=== PATIENT | female | born 1955 | race Caucasian/White ===

== ENCOUNTER 2025-04-12 12:06 | Day surgery (SDC) | payer MEDICARE, OTHER ==
--- NOTE | 2025-04-10 11:36 | ELECTROCARDIOGRAPH REPORT ---
[facility] Test Date: 2025-04-10 Test Time: 11:32:58 Pat Name: ZHANG BARNARD Department[id number] Room: Gender: F Rand Butter: drake : 1955 Requested By: AMANDA GREENBERG Order Number: [id number] Reading MD: Dr. MI Aggarwal Measurements Intervals [place] Rate: 51 P: 41 [place]: 174 QRS: -34 QRSD: 107 T: -21 QT: 482 QTc: 444 Interpretive Statements Sinus bradycardia Inferior infarct, old Electronically Signed On 04-10-2025 17:23:[address] MI Aggarwal Please click the below link to view image of tracing.
[2025-04-10 11:51] LABS: MEAN PLATELET VOLUME 7.4 FL (7.4-10.4); PRE OP HEMATOCRIT 41.0 % (35.0-45.0); PRE OP HEMOGLOBIN 13.7 g/dL (12.0-16.0); PRE OP PLATELET COUNT 266 X10'3 (140-440); PRE OP WHITE BLOOD COUNT 6.4 10'3 (4.8-10.8); RED CELL DISTRIBUTION WIDTH 13.7 % (11.5-14.5)
[2025-04-10 12:01] LABS: CREATININE 1.01 MG/DL (0.40-0.90); PRE OP ALT 24 U/L (30-65); PRE OP ANION GAP 8 (8-16); PRE OP AST 17 U/L (10-37); PRE OP BILIRUB, TOTAL 0.3 MG/DL (0.0-1.0); PRE OP GLUCOSE 93 MG/DL (70-104); PRE OP SODIUM 146 MMOL/L (135-145); TOTAL CARBON DIOXIDE 31.7 MMOL/L (24-32); eGFR 55 ML/MIN
[2025-04-10 12:32] LABS: PRE OP POTASSIUM 3.0 MMOL/L (3.4-5.1)
[~2025-04-12] VITALS: Ht 175.3 cm; Wt 102.6 kg
[2025-04-12] VITALS (13 sets, daily range): BP systolic 124–175; BP diastolic 73–112; PULSE 45–73; RESP 10–18; TEMP 97; O2SAT 97–100
[2025-04-12] MEDS: ceFAZolin 2gm/dext,iso 50mL 50 ML IV ONE (05:30)
[~2025-04-12 12:06] MED LIST: ATOR40TA72 PO; DOCUMENT DATE & TIME OF BETA-BLOCKER PO ONE; ESTR0.3T3 PO; HYDR25TA4 PO; INDLA80C PO; POTA10CA95 PO
[2025-04-12] MEDS ORDERED: glycopyrrolate 0.2mg/ml inj IV ONE (12:07)
[2025-04-12] MEDS ORDERED: acetaminophen 1,000mg/100ml IV 100 ML IV ONE (12:48)
[2025-04-12] MEDS ORDERED: BUPIVAcaine/PF 2.5mg/ml (0.25%) 10ml vial ONE (12:48)
[2025-04-12] MEDS ORDERED: LIDOcaine 1% (10mg/ml)w/preservative inj. 20ml MDV ONE (12:48)
[2025-04-12 13:14] LABS: ISTAT ANION GAP 10.0 (8-12); ISTAT BUN 15.0 mg/dL (7-18); ISTAT CL 106.0 mmol/L (99-107); ISTAT CREATININE 1.2 mg/dL (0.6-1.1); ISTAT GLUCOSE 81.0 mg/dL (70-104); ISTAT HGB 13.3 g/dl (12.0-16.0); ISTAT Hct 39.0 %PCV (35-45); ISTAT IONIZED CALCIUM 1.21 mmol/L (1.03-1.32); ISTAT K 3.4 mmol/L (3.5-5.1); ISTAT NA 141.0 mmol/L (135-145); ISTAT TOTAL CO2 25.0 mmol/L (24-32); ISTAT eGFR 45.0 ML/MIN; POC BUN/CREATININE RATIO 12.5 (6.6-38.0)
[2025-04-12] MEDS: ringers solution, lacted 1,000 ML IV SCH (13:20)
[2025-04-12] MEDS: INDOCYANINE GREEN 25 MG/10 ML VIAL IV ONE (13:21)
[2025-04-12] MEDS ORDERED: morphine 4 MG/ML inj SYRINge IV PRN (13:40)
[2025-04-12] MEDS ORDERED: ringers solution, lacted 1,000 ML IV SCH (13:40)
[2025-04-12] MEDS ORDERED: fentaNYL/PF 50MCG/1 ML 2ML syringe IV PRN (13:40)
[2025-04-12] MEDS ORDERED: ondansetron/PF 4mg/2ml inj IV PRN (13:40)
[2025-04-12] MEDS ORDERED: HYDROmorphone/PF 0.2 MG/ML SYRINGE IV PRN ×2 (13:40)
[2025-04-12] MEDS ORDERED: midazolam 1 mg/ML 2ml injection ONE (14:21)
[2025-04-12] MEDS ORDERED: fentaNYL/PF 50MCG/1 ML 2ML syringe ONE (14:21)
[2025-04-12] MEDS ORDERED: propofol inj 20 ML IV ONE (14:27)
[2025-04-12] MEDS ORDERED: LIDOcaine 1%/PF 5ML 10 MG/ML VIAL ONE (14:27)
[2025-04-12] MEDS ORDERED: ondansetron/PF 4mg/2ml inj ONE (14:27)
[2025-04-12] MEDS ORDERED: dexamethasone sod phosphate 4mg/ml inj. ONE (14:27)
[2025-04-12] MEDS ORDERED: rocuronium 10mg/ml inj IV ONE (14:27)
[2025-04-12] MEDS ORDERED: oxyCODONE/APAP 5-325mg tablet PO PRN (15:20)
--- NOTE | 2025-04-12 15:22 | OPERATIVE REPORT ---
Operative Report Providers to CC CC: DALJIT GREENBERG MD ~ Date of Procedure: Apr 12, 2025 Pre-Operative Diagnosis: Symptomatic cholelithiasis Post-Operative Diagnosis SAME as PRE-Op Procedure Performed Robotic assisted, laparoscopic cholecystectomy Surgeon: Daljit Greenberg MD FACS [employer] None Anesthesiologist: Mani Orona Type of Anesthesia: General Findings: Clear visualization of the cystic duct and critical view of safety confirmed with fluorescent cholangiography/firefly Cholelithiasis Complications None Prosthetics\Implants used: None Estimated Blood Loss: Minimal Specimen Removed: Gallbladder Description of Procedure: Patient was brought to the operating room and identified by the nursing staff and the attending physician. Patient was placed supine and general anesthesia was induced. A supraumbilical, midline incision was made, long enough to accommodate a 12 mm Peñaloza port. Peñaloza technique was used to gain entry into the abdomen. Stay sutures were placed in the Peñaloza port anchored to the fascia. Abdomen was insufflated without incident. Laparoscope was inserted and the abdomen surveyed. Secondary, 8.5 mm robotic trochars were placed in the left upper quadrant and right lateral abdomen. Robotic arm was docked to the patient. Robotic instruments were guided intra- abdominally under laparoscopic visualization. Gallbladder was readily identified. Some filmy attachments between the anterior wall of the gallbladder and the 2nd portion of the duodenum were taken down Fundus of the gallbladder was grasped and retracted over the dome of the liver. Infundibulum was retracted towards the right lower quadrant. Firefly technology was used to obtain a fluorescent cholangiogram and visualize the pertinent anatomy. Cystic duct was clearly visualized. Peritoneum overlying the triangle was incised with hook electrocautery. This allowed for circumferential dissection of the cystic duct and artery. Critical view of safety was obtained. Duct and artery were then clipped with hemo-lock clips and both structures divided. Gallbladder was retracted laterally and dissected out of the gallbladder fossa. Gallbladder was set aside and fluorescent cholangiogram of the gallbladder fossa was used to confirm no evidence of bile leak. Gallbladder was placed in a laparoscopic retrieval bag. Secondary trochars were removed and the abdomen allowed to deflate. Peñaloza port was removed with the specimen in its retrieval bag. Fascia at the umbilical port site was closed with 0 Vicryl sutures. Skin was closed with 4-0 Monocryl sutures in a subcuticular fashion. About 40 cc of local anesthetic was used during the case. Sterile dressings were applied. Patient was awakened and taken to the postanesthesia care unit in stable condition. Counts repoted as correct: Yes DALJIT GREENBERG MD Apr 12, 2025 15:22
[2025-04-12] MEDS: fentaNYL/PF 50MCG/1 ML 2ML syringe IV PRN (15:32)
[2025-04-12] MEDS ORDERED: HYDROmorphone/PF 0.2 MG/ML SYRINGE IV ONE (15:50)
[2025-04-12] MEDS: HYDROmorphone inj. 0.5 MG/0.5 ML DISP.SYRIN IV ONE (15:59)
[2025-04-12] MEDS: labetalol 20mg/4ml (5mg/ml) syringe IV PRN (16:05)
[2025-04-12] MEDS: enalaprilat 1.25mg/ml 2ml vial IV PRN (16:48)
--- NOTE | 2025-04-13 07:27 | ELECTROCARDIOGRAPH REPORT ---
[facility] Test Date: 2025-04-12 Test Time: 16:05:11 Pat Name: ZHANG BARNARD Department: SHORT STAY 1ST FLOOR Patient ID: [facility]-[id number] Room: Gender: F Belt Maker: : 1955 Requested By: AMANDA GREENBERG Order Number: [id number] Reading MD: Dr. MI Aggarwal Measurements Intervals [place] Rate: 55 P: 16 [place]: 162 QRS: -33 QRSD: 109 T: -3 QT: 492 QTc: 471 Interpretive Statements Sinus rhythm Left axis deviation Abnormal R-wave progression, late transition Borderline T abnormalities, anterior leads Baseline wander in lead(s) II,III,aVL,aVF,V1,V2,V3,V4,V5,V6 Electronically Signed On 04-13-2025 12:58:[address] MI Aggarwal Please click the below link to view image of tracing.
== END 2025-04-12 16:55 | disposition home or self-care (01) ==
LOC: PAS 12:06
PROVIDERS: ATTEND Surgery
DX: K80.10 Calculus of gallbladder with chronic cholecystitis without obstruction (principal); R94.31 Abnormal electrocardiogram [ECG] [EKG]; I25.2 Old myocardial infarction; I10 Essential (primary) hypertension; E78.5 Hyperlipidemia, unspecified; E66.9 Obesity, unspecified; G43.909 Migraine, unspecified, not intractable, without status migrainosus; Z79.899 Other long term (current) drug therapy; Z90.49 Acquired absence of other specified parts of digestive tract; Z90.710 Acquired absence of both cervix and uterus; Z98.890 Other specified postprocedural states; Z68.33 Body mass index [BMI] 33.0-33.9, adult; Z88.8 Allergy status to other drugs, medicaments and biological substances; Z91.013 Allergy to seafood
CPT/HCPCS: 36415; 47563; 80047; 80053; 85025; 88304; 93005; A4215; A4618; A7000; J0131; J0780; J1100; J1171; J2250; J2405; J2704; J2710; J3010; J3490; J7030; J7120; Z7506; Z7508; Z7512; Z7610